=== PATIENT | female | born 1995 | race African-American/Black ===

== ENCOUNTER → 2017-01-04 | Outpatient (CLI) | payer OTHER ==
[~2017-01-04] MED LIST: FLEXERIL10 MG PO; MOTRIN IB200 M1 PO; NAPROSYN-EC500 MG PO
== END | disposition home or self-care (01) ==
LOC: CBAR 14:40
DX: Z01.812 Encounter for preprocedural laboratory examination (principal); E66.01 Morbid (severe) obesity due to excess calories
CPT/HCPCS: 36415; 84443; 86677; G0463

== ENCOUNTER → 2017-02-19 | Outpatient (CLI) | payer OTHER ==
--- NOTE | ~2017-02-19 | EKG ---
PATIENT: SID PRAJAPATI UNIT #: [id number] Ventricular Rate: 70 BPM Atrial Rate: 70 BPM P-R Interval: 130 ms QRS Duration: 84 ms Q-T Interval: 362 ms QTC Calculation(Bezet): 390 ms P Villanova: 28 degrees Calculated R Villanova: 49 degrees Calculated T Villanova: 41 degrees Diagnosis Line: Normal sinus rhythm Diagnosis Line: Early repolarization Diagnosis Line: Normal ECG Diagnosis Line: No previous ECGs available Diagnosis Line: Confirmed by MELVIN PITTMAN MD ([id number]) on 02/19/2017 Diagnosis Line: 5:27:58 PM INTERPRETING MD: TOYA LAGUNAS
--- NOTE | ~2017-02-19 | CR97 ---
[facility] A Service of [facility] & [facility] RADIOLOGY TEXT RESULTS PATIENT: SID PRAJAPATI LOCATION: [facility] : [birth year] UNIT #: [id number] AGE: [address]: Colt Esposito MD SEX: F ORDER DR: [id number] [facility] [address] [place], [place] [address] [id number] O MR#: [id number] Acc #: [id number] NAME: SID PRAJAPATI : 1995 SEX: F STUDY DATE/TIME: 02/19/2017 9:34 UNIT: [facility] ROOM: STUDY DESCRIPTION: CR Esophagram Attending Physician: Colt Esposito M.D. Referring Physician: Colt Esposito M.D. Ordering Physician: Colt Esposito M.D. Primary Care Physician: No Primary Care Physician MEDICAL IMAGING REPORT This report is preliminary unless electronic signature is present EXAM Esophagram 02/19/2017 HISTORY Planned bariatric surgery. Preop assessment. PROCEDURE Study performed with 0.4 minutes of fluoroscopy and 6 spot images. FINDINGS The esophagus is normal course and caliber. There is no mass or ulceration or stricture or hernia. IMPRESSION Normal esophagram. Dictated by... Carlos Chong M.D. THIS IS AN ELECTRONICALLY VERIFIED REPORT Carlos Chong M.D. at 02/22/2017 9:06 AM YUKO/christian TD: 02/20/2017 01:52 JOB #: [id number] MEDICAL IMAGING REPORT Page 1 of 1 COPY
--- NOTE | ~2017-02-19 | CR63 ---
[facility] A Service of [facility] & [facility] / [facility] RADIOLOGY TEXT RESULTS PATIENT: SID PRAJAPATI LOCATION: [facility] : [birth year] UNIT #: [id number] AGE: [address]: Colt Esposito MD SEX: F ORDER DR: [id number] [facility] [address] [place], [place] [address] [id number] O MR#: [id number] Acc #: [id number] NAME: SID PRAJAPATI : 1995 SEX: F STUDY DATE/TIME: 02/19/2017 8:40 UNIT: [facility] ROOM: STUDY DESCRIPTION: CR Chest 2 View Attending Physician: Colt Esposito M.D. Referring Physician: Colt Esposito M.D. Ordering Physician: Colt Esposito M.D. MEDICAL IMAGING REPORT This report is preliminary unless electronic signature is present EXAM Chest PA and lateral 02/19/2017 HISTORY Morbid obesity, preop laparoscopic gastric banding. FINDINGS PA and lateral examination of the chest upright shows a good expansion of the parenchyma with a normal distribution of the pulmonary vascularity. There is no indication of congestion, effusion, infiltrate, tumor, or nodular density. The pleural reflections and diaphragmatic contours are normal. The cardiac silhouette and mediastinal anatomy is within normal limits. IMPRESSION Normal chest. Dictated by... Geovanni Gonzalez M.D. THIS IS AN ELECTRONICALLY VERIFIED REPORT Geovanni Gonzalez M.D. at 02/22/2017 7:33 AM KRT/benitez TD: 02/19/2017 19:59 JOB #: [id number] MEDICAL IMAGING REPORT Page 1 of 1 COPY
[2017-02-19 10:16] LABS: HEMATOCRIT 36.3 % (35.0-45.0); HEMOGLOBIN 12.4 gm/dL (12.0-16.0); MEAN CELL VOLUME 84.4 FL (83-96); MEAN CORPUSCULAR HEMOGLOBIN 28.9 PG (28-34); MEAN CORPUSCULAR HGB CONC 34.2 g/dL (30-36); MEAN PLATELET VOLUME 8.7 FL (6.5-11.5); RED BLOOD COUNT 4.3 X10e (3.90-5.30); RED CELL DISTRIBUTION WIDTH 12.8 % (11.0-15.5); WHITE BLOOD COUNT 5.6 X10e3 (4.0-10.5)
[2017-02-19 10:57] LABS: ALBUMIN SERUM 4.2 g/dL (3.5-5.0); BILIRUBIN,TOTAL 0.5 mg/dL (0.2-2.0); BUN/CREATININE RATIO 17.14; CALCIUM SERUM 9.6 mg/dL (8.4-10.2); CREATININE SERUM 0.7 mg/dL (0.6-1.4); GLOM FILT RATE Estimated 144.6 mL/min (>60); POTASSIUM 4.2 mmol/L (3.5-5.1); PROTEIN TOTAL SERUM 7.2 g/dL (6.0-8.3)
== END | disposition home or self-care (01) ==
LOC: CRAD 08:17 → CAMB 09:30
PROVIDERS: Surgery
DX: Z01.818 Encounter for other preprocedural examination (principal); E66.01 Morbid (severe) obesity due to excess calories
CPT/HCPCS: 36415; 71020; 74220; 80053; 80061; 84443; 85027; 93005

== ENCOUNTER → 2017-03-03 | Day surgery (SDC) | payer OTHER ==
--- NOTE | ~2017-03-03 | CR7 ---
[facility] A Service of [facility] & [facility] RADIOLOGY TEXT RESULTS PATIENT: SID PRAJAPATI LOCATION: [facility] : 96 UNIT #: [id number] AGE: [address]: Colt Esposito MD SEX: F ORDER DR: [id number] [facility] [address] [place], [place] [address] [id number] O MR#: [id number] Acc #: [id number] NAME: SID PRAJAPATI : 1995 SEX: F STUDY DATE/TIME: 03/03/2017 10:20 UNIT: [facility] ROOM: STUDY DESCRIPTION: CR Abdomen Single AP View Attending Physician: Colt Esposito M.D. Ordering Physician: Colt Esposito M.D. Primary Care Physician: Primary Care Physician No MEDICAL IMAGING REPORT This report is preliminary unless electronic signature is present EXAM Abdomen 03/03/2017 INDICATIONS Gastric band placement today. Morbid obesity. FINDINGS Supine view the abdomen was obtained. Gastric band is present with a phi angle of 68 degrees. Port is in the left lower abdomen. Bowel gas pattern is normal. IMPRESSION Gastric band in place with a phi angle of 68 degrees. Dictated by... Link Stafford Jr., M.D. THIS IS AN ELECTRONICALLY VERIFIED REPORT Link Stafford Jr., M.D. at 03/04/2017 8:29 AM IDALIA/spencer TD: 03/03/2017 19:02 JOB #: [id number] MEDICAL IMAGING REPORT Page 1 of 1 COPY
--- NOTE | ~2017-03-03 | OR ---
Unit #: [id number] #: [id number] Patient: SID PRAJAPATI [id number] [address] [address] [id number] O MR#: [id number] NAME: SID PRAJAPATI ROOM: Date of Procedure: 03/03/2017 Admission Date: 03/03/2017 Surgeon: Colt Esposito M.D. : 1995 Attending Physician: Colt Esposito M.D. Primary Care Physician: Primary Care Physician No OPERATIVE REPORT PREOPERATIVE DIAGNOSIS Chronic obesity, body mass index of 39. POSTOPERATIVE DIAGNOSES 1. Chronic obesity, body mass index of 39. 2. Paraesophageal hiatal hernia. PROCEDURES PERFORMED Laparoscopic adjustable gastric band with laparoscopic paraesophageal hiatal hernia repair. ASSISTANT Gallo Golden M.D. ANESTHESIA General endotracheal anesthesia. ESTIMATED BLOOD LOSS Minimal. IV FLUIDS 800 crystalloid. COMPLICATIONS None. INDICATIONS FOR PROCEDURE The patient is a 21-year-old with chronic morbid obesity. DESCRIPTION OF PROCEDURE The patient was taken to the operating room and placed in supine position. General anesthesia was induced. The abdomen was prepped and draped. A 3-cm incision was then made left of the midline. A 10-mm Visiport was then placed intraabdominal under direct vision. The abdomen was insufflated to 15 mmHg with CO2. The patient was then placed in a steep reversed Trendelenburg. General inspection of the abdomen revealed what appeared to be a paraesophageal hernia. This was identified with a defect at the diaphragm using anterior palpation with the instrument. We then made a small incision in the subxiphoid region. A Anila liver retractor was then placed intraabdominal and used to retract the left lobe of the liver upward to further expose the paraesophageal hernia and GE junction. I then placed a 5-mm port in the right upper quadrant, a 10-mm Unit #: [id number] #: [id number] Patient: SID PRAJAPATI port in the left upper quadrant, and another 5-mm port in the left lower quadrant. The stomach was retracted medial and downward. Upon retracting the stomach, we took down the paraesophageal ligament, exposing the right and left milly at the paraesophageal hernia. Any hernia sac was reduced. We then repaired the paraesophageal hernia using interrupted #0 Ethibond sutures in a uuuyuz-[id number] type fashion. This formed a snug repair to the anterior esophagus. We then retracted the stomach medially and further exposed the angle of His using Bovie electrocautery. The stomach was then retracted laterally. We then took down the hepatogastric ligament with Bovie electrocautery. This exposed the right milly. Using blunt dissection, I created a retrogastric tunnel from this point to the angle of His. The band was then placed intraabdominal through the 10-mm port site. This was then brought through the retrogastric tunnel in a pars flaccida technique. The band was then closed anteriorly to form a 20-mL to 25-mL anterior gastric pouch. The fundus was then secured to the anterior pouch to prevent movement around the stomach using two interrupted #0 Ethibond sutures. A third suture was then used as a gathering stitch from the lesser curve to the anterior stomach, gathering and imbricating the remaining fundus of the stomach. The tubing was then brought out through the midline 10-mm port site. All ports and the Anila liver retractor were removed under direct vision with no evidence of abdominal hemorrhage. A polypropylene mesh was then secured to the posterior face of the laparoscopic band port. This was secured using #0 Ethibond suture. This was then cut to shape. The port was then connected to the tubing and placed into a subcutaneous pocket just anterior to the rectus sheath. Its position was then confirmed. All tubing was then placed intraabdominal. The wounds were then closed with interrupted 4-0 Vicryl. The patient tolerated the procedure well and was sent to the recovery room in good condition. Dictated by... Chana Silva/cecille TD: 03/03/2017 22:08 JOB #: [id number] OPERATIVE REPORT Page 1 of 1 X Colt Esposito MD PROCEDURE OPERATIVE NOTE
== END | disposition home or self-care (01) ==
LOC: CSUR 07:34
DX: E66.01 Morbid (severe) obesity due to excess calories (principal); K44.9 Diaphragmatic hernia without obstruction or gangrene; Z68.39 Body mass index [BMI] 39.0-39.9, adult; Z87.891 Personal history of nicotine dependence; Z72.4 Inappropriate diet and eating habits
CPT/HCPCS: 74000; 84703; C1781; J0330; J0690; J1100; J1650; J1885; J2250; J2405; J2710; J3010